=== PATIENT | male | born 1965 | race American Indian/Alaskan Native ===

== ENCOUNTER 2019-09-08 07:43 | Outpatient (CLI) | payer OTHER, SELFPAY ==
--- NOTE | 2019-09-08 08:09 | CT_ITS ---
WS: [id number] CT CHEST TECHNIQUE: Contrast enhanced CT of the chest with coronal and sagittal reformatted images. CLINICAL INFORMATION: ABNORMAL CT COMPARISON: None. DLP: 956.[address] scans at [facility] use at least one of these dose optimization techniques: automat ed exposure control; mA and/or kV adjustment per patient size (includes targeted exams where dose is matched to clinical indication); or iterative reconstruction. FINDINGS: Noncalcified 6 mm nodule in the right upper lobe. Slight atelectasis in the lung bases. Tiny hazy non calcified nodule in the left lower lobe measuring 4 mm. Mild chronic emphysematous changes. Proximal main pulmonary arteries are normal. No mediastinal or hilar lymphadenopathy. Mild diffuse fatty infiltration of the liver. Adrenal glands are normal. Bilateral renal cysts. Parti ally visualized left renal cyst measuring 4.[address]/CT chest w con* [id number] IMPRESSION: 1. Noncalcified right upper lobe nodule measuring 6 mm. Noncalcified 3 mm nodu le in the left lower lobe. Recommend 6 month follow-up. 2. Mild chronic emphysematous changes. No acute pulmonary infiltrates. Slight atelectasis in the lung bases. 3. No mediastinal or hilar lymphadenopathy. 4. Mild diffuse fatty infiltration of the liver. 5. Partially visualized bilateral renal cysts.
[2019-09-08] MEDS: iohexol 300 mg/mL 100 mL Btl IV (08:31)
== END 2019-09-08 07:44 | disposition home or self-care (01) ==
LOC: RADWPI 07:50
PROVIDERS: PCP Internal Medicine; Visit Provider Internal Medicine
DX: R93.89 Abnormal findings on diagnostic imaging of other specified body structures (principal); R91.1 Solitary pulmonary nodule; J43.8 Other emphysema; K76.0 Fatty (change of) liver, not elsewhere classified; N28.1 Cyst of kidney, acquired
CPT/HCPCS: 71260; Q9967

== ENCOUNTER 2022-05-22 12:15 | Emergency (ER) | payer OTHER, SELFPAY ==
[2022-05-22 12:20] VITALS: BP 191/98; PULSE 106; RESP 20; TEMP 37.6; O2SAT 95
--- NOTE | 2022-05-22 12:33 | ECG_ITS ---
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 Measurements Intervals [place] Rate: 90 P: 44 MO: 131 QRS: 109 QRSD: 108 T: 17 QT: 360 QTc: 441 Interpretive Statements SINUS RHYTHM RIGHT AXIS DEVIATION [QRS AXIS > 100] PATTERN CONSISTENT WITH PULMONARY DISEASE NONSPECIFIC T-WAVE ABNORMALITY No previous ECG available for comparison Electronically Signed On 05-22-2022 21:27:34 CDT by Sharyn Vale M.D. [id number]
--- NOTE | 2022-05-22 12:33 | XR_ITS ---
WS: [id number] XR chest 1V portable [id number] REASON FOR EXAM: dyspnea/cough FINDINGS: No recent examination for comparison. Mild tortuosity the thoracic aorta. Normal heart size. Calcified granulomatous disease in both hemithoraces. Slightly thickened reticular interstitial lung opacities in the left lower lung with subtle patchy ar ea of opacity overlying the diaphragm. Significant changes of degenerative spondylosis in the mid and lower thoracic spine. XR/XR chest 1V portable [id number] IMPRESSION: Subtle opacities in the left lower lung of unknown chronicity. Possibly early m anifestation of pneumonitis. Follow-up PA and lateral chest recommended as clin ically warranted.
--- NOTE | 2022-05-22 12:39 | W.ED.SOB ---
HPI - SOB/Dyspnea General: Chief Complaint: Shortness of Breath/Dyspnea Stated Complaint: SOB Time Seen by Provider: 05/22/22 12:24 Source: patient Mode of arrival: ambulatory History of Present Illness: HPI Narrative: 57-year-old male with history of COPD presents emergency room complaining of shortness of breath productive cough progressively worsening for last several days he has had increase of sputum production from his baseline as well patient. Patient is a former smoker has a history of COPD quit smoking years ago but still has difficulty with COPD is not normally on oxygen he has a low-grade fever. He denies chest discomfort or radiation of pain to the neck arms at this time. MD elicited complaint: shortness of breath and cough Pertinent past history: COPD Onset (ago): day(s) Context: occurred during exertion Timing: constant and progressively worsening Severity: mild Exacerbating factors: exertion and coughing Relieving factors: rest Known history of: COPD Associated symptoms: Reports fever(s); Deny abdominal pain, chest congestion, chest pain, cough, diaphoresis, dizziness, extremity pain, hemoptysis, lightheadedness, myalgias, nausea, orthopnea, palpitations, paresthesias, polydipsia, polyuria, rash, sense of impending doom, syncope or vomiting Treatment prior to arrival: none Review of Systems Const: Reports: fever(s); Denies: chills, fatigue, malaise or diaphoresis ENMT: Denies: throat pain, ear or mastoid pain, nasal discharge or nasal congestion Card: Denies: chest pain, palpitations, irregular heart rhythm, edema, lightheadedness, syncope or orthopnea Resp: Reports: dyspnea, non-productive cough and wheezing; Denies: hemoptysis or chest congestion GI: Denies: abdominal pain, nausea or vomiting : Denies: flank pain, dysuria, urinary frequency or urinary urgency Musc: Denies: extremity pain Skin/Breast: Denies: rash or pruritus Neuro: Denies: dizziness Endo: Denies: polyuria or polydipsia Physical Exam Const: GENERAL APPEARANCE: cooperative and comfortable ORIENTATION/CONSCIOUSNESS: Yes awake, Yes oriented to person, Yes oriented to place and Yes oriented to time HENMT: COMMON NORMALS: normocephalic, atraumatic and hearing grossly normal bilaterally HEAD & SCALP: normocephalic and atraumatic Resp: COMMON NORMALS: normal respiratory effort, No retractions and No use of accessory muscles AUSCULTATION: wheezes Cardio: COMMON NORMALS: regular rate, regular rhythm and No murmurs present (Cardio) RATE: regular rate RHYTHM: regular rhythm GI: COMMON NORMALS: Soft to palpation and No hepatosplenomegaly present AUSCULTATION: Yes normoactive bowel sounds PALPATION: Yes Soft to palpation, No Tenderness to palpation present (GI), No Guarding due to palpation present (GI) and Yes No hepatosplenomegaly present Extremity: COMMON NORMALS: normal to inspection, capillary refill normal, no clubbing, cyanosis or edema, no calf tenderness and no pedal edema Neuro: SENSORIUM/ORIENTATION: Yes oriented to person, Yes oriented to place and Yes oriented to time Skin: COMMON NORMALS: no rashes or lesions noted GENERAL SKIN EXAM: no rashes or lesions noted Course Vital Signs: Vital signs: Vital Signs Temperature 98.2 F 05/22/22 14:15 Pulse Rate 90 05/22/22 14:15 Respiratory Rate 18 05/22/22 14:15 Blood Pressure 179/98 05/22/22 14:15 Pulse Oximetry 92 05/22/22 14:15 Oxygen Delivery Me thod 05/22/22 13:17 MDM - SOB/Dyspnea Medical Decision Making Labs imaging and EKG reviewed. No acute EKG changes early pneumonia on the chest x-ray. I think he also has a mild exacerbation of COPD. His COVID is negative. No evidence of pulmonary emboli and his clinical presentation not consistent with acute coronary syndrome. Will discharge home on Levaquin 750 p.o. daily prednisone taper aggressive use of albuterol follow-up with primary care doctor return if is worsening symptoms Medical Records I reviewed the patient's medical records. Lab Data I reviewed the patient's lab results. 05/22/22 12:50 05/22/22 12:50 Labs/Radiology: Radiology Impressions Chest X-Ray 05/22/22 12:33 IMPRESSION: Subtle opacities in the left lower lung of unknown chronicity. Possibly early manifestation of pneumonitis. Follow-up PA and lateral chest recommended as clinically warranted. Laboratory Results WBC 5.4 10^3/uL (4.0-10.0) 05/22/22 12:50 RBC 5.06 10^6/uL (4.1-5.3) 05/22/22 12:50 Hgb 15.4 g/dL (11.7-16.6) 05/22/22 12:50 Hct 45.4 % (42.0-52.0) 05/22/22 12:50 MCV 89.7 fl (80-94) 05/22/22 12:50 MCH 30.4 pg (28.0-34.0) 05/22/22 12:50 MCHC 33.9 g/dL (30.0-36.0) 05/22/22 12:50 RDW 12.1 % (12.1-15.1) 05/22/22 12:50 Plt Count 198 10^3/cmm (130-400) 05/22/22 12:50 MPV 11.4 fL (7.4-10.4) H 05/22/22 12:50 Neut % (Auto) 64.7 % 05/22/22 12:50 Lymph % (Auto) 21.7 % 05/22/22 12:50 [place] % (Auto) 9.0 % 05/22/22 12:50 Eos % (Auto) 3.6 % 05/22/22 12:50 Baso % (Auto) 0.6 % 05/22/22 12:50 Neut # (Auto) 3.47 10^3/uL (1.8-7.7) 05/22/22 12:50 Lymph # (Auto) 1.2 10^3/uL (0.8-4.8) 05/22/22 12:50 [place] # (Auto) 0.5 10^3/uL (0.2-0.9) 05/22/22 12:50 Eos # (Auto) 0.2 10^3/uL (0.0-0.8) 05/22/22 12:50 Baso # (Auto) 0.0 10^3/uL (0.0-0.1) 05/22/22 12:50 Nucleated RBC % (auto) 0 % 05/22/22 12:50 Nucleated RBCs # 0.0 /100WBC 05/22/22 12:50 Sodium 135 mmol/L (136-145) L 05/22/22 12:50 Potassium 3.8 mmol/L (3.5-5.1) 05/22/22 12:50 Chloride 98 mmol/L (98-107) 05/22/22 12:50 Carbon Dioxide 22 mmol/L (22-29) 05/22/22 12:50 Anion Gap 18.8 (5-19) 05/22/22 12:50 BUN 14 mg/dL (6-20) 05/22/22 12:50 Creatinine 0.8 mg/dL (0.7-1.2) 05/22/22 12:50 GFR Calculation 100.4 mL/min (90-130) 05/22/22 12:50 Glucose 82 mg/dL (65-115) 05/22/22 12:50 Calculated Osmolality 280 mOsm/kg (285-295) L 05/22/22 12:50 Calcium 8.6 mg/dL (8.5-10.5) 05/22/22 12:50 Total Bilirubin 0.7 mg/dL (0.15-1.2) 05/22/22 12:50 AST 37 U/L (0-40) 05/22/22 12:50 ALT 33 U/L (0-41) 05/22/22 12:50 Alkaline Phosphatase 73 U/L (40-130) 05/22/22 12:50 Troponin T Baseline 10 ng/L (0-15) 05/22/22 12:50 Total Protein 7.6 g/dL (6.6-8.7) 05/22/22 12:50 Albumin 4.0 g/dL (3.5-5.2) 05/22/22 12:50 Globulin 3.6 g/dL (1.3-4.6) 05/22/22 12:50 Coronavirus 229E (PCR) Not detected (NOT DETECT) 05/22/22 13:15 Human Metapneumovir PCR Detected (NOT DETECT) A 05/22/22 15:43 Entero/Rhino (PCR) Not detected (NOT DETECT) 05/22/22 15:43 SARS-CoV-2 (PCR) Not detected (NOT DETECT) 05/22/22 13:15 Discharge Plan Discharge Patient Disposition: Home Clinical Impression: Community acquired pneumonia, Acute exacerbation of chronic obstructive airways disease Condition: Stable Prescriptions: New levofloxacin 750 mg tablet 750 mg PO DAILY 7 Days Qty: 7 0RF Medrol (Bronson) 4 mg tablets,dose pack See Rx Instructions .ROUTE .COMPLEX Qty: 21 0RF Rx Instructions: orally per package directions albuterol sulfate 90 mcg/actuation HFA aerosol inhaler 2 inh INHALATION Q4H PRN (Reason: shortness of breath or wheezing) Qty: 18 0RF Discharge Orders: Discharge ED (Routine); Ordered 05/22/22 Ordered By: Simone Levin Referrals: Thu Penn MD [Primary Care Provider] - Discharge Diet: Usual diet Discharge Activity: Increase activity as tolerated Patient Instructions: Opioid Safety, Pain Management Activity Restrictions/Additional Instructions: You are seen today for increasing productive cough. Chest x-ray shows early pneumonia. Recommend you start on oral antibiotics as well as steroid taper and use albuterol regularly. Return to the ER if you have significant worsening problems. Coding Level of Care Code ED [employer] for Nemo Novak
[2022-05-22 12:48] VITALS: BP 143/97; PULSE 95; RESP 20; O2SAT 95
[2022-05-22] MEDS: aspirin 81 mg Chew Tablet 324 MG PO (12:50)
[2022-05-22 13:06] LABS: Basophils % 0.6 %; Eosinophils # 0.2 10^3/uL (0.0-0.8); Eosinophils % 3.6 %; Hematocrit 45.4 % (42.0-52.0); Hemoglobin 15.4 g/dL (11.7-16.6); Lymphocytes # 1.2 10^3/uL (0.8-4.8); Lymphocytes % 21.7 %; Mean Corpuscular HGB Conc 33.9 g/dL (30.0-36.0); Mean Corpuscular Hemoglobin 30.4 pg (28.0-34.0); Mean Corpuscular Volume 89.7 fl (80-94); Mean Platelet Volume 11.4 fL (7.4-10.4); Monocytes # 0.5 10^3/uL (0.2-0.9); Neutrophils # 3.47 10^3/uL (1.8-7.7); Neutrophils % 64.7 %; Nucleated Red Blood Cells % 0 %; Platelet Count 198 10^3/cmm (130-400); Red Blood Count 5.06 10^6/uL (4.1-5.3); Red Cell Distribution Width 12.1 % (12.1-15.1); White Blood Count 5.4 10^3/uL (4.0-10.0)
[2022-05-22 13:17] VITALS: PULSE 96; RESP 16; O2SAT 95
[2022-05-22] MEDS: ipratropium-albuterol 3 mL Neb INHALATION (13:17)
[2022-05-22 13:21] VITALS: PULSE 99
[2022-05-22 13:21] LABS: Alanine Aminotransferase 33 U/L (0-41); Alkaline Phosphatase 73 U/L (40-130); Anion Gap 18.8 (5-19); Aspartate Amino Transferase 37 U/L (0-40); Blood Urea Nitrogen 14 mg/dL (6-20); Calcium 8.6 mg/dL (8.5-10.5); Carbon Dioxide 22 mmol/L (22-29); Chloride 98 mmol/L (98-107); Globulin 3.6 g/dL (1.3-4.6); Glomerular Filtration Rate 100.4 mL/min (90-130); Glucose 82 mg/dL (65-115); Osmolality Calculated 280 mOsm/kg (285-295); Potassium 3.8 mmol/L (3.5-5.1); Sodium 135 mmol/L (136-145); Total Bilirubin 0.7 mg/dL (0.15-1.2); Total Protein 7.6 g/dL (6.6-8.7)
[2022-05-22 13:23] LABS: Troponin(5th) Baseline 10 ng/L (0-15)
[2022-05-22 14:15] VITALS: BP 179/98; PULSE 90; RESP 18; TEMP 36.8; O2SAT 92
[2022-05-22 15:31] LABS: Adenovirus Not Detected (NOT DETECT); Chlamydia Pneumoniae Not Detected (NOT DETECT); Coronavirus 229E,HKU1,NL63,OC4 Not Detected (NOT DETECT); Human Metapneumovirus Detected (NOT DETECT); Human Rhinovirus/Enterovirus Not Detected (NOT DETECT); Influenza A Not Detected (NOT DETECT); Influenza A H1 Not Detected (NOT DETECT); Influenza A H1-2009 Not Detected (NOT DETECT); Influenza A H3 Not Detected (NOT DETECT); Influenza B Not Detected (NOT DETECT); Mycoplasma Pneumoniae Not Detected (NOT DETECT); Parainfluenza Virus Type 1 Not Detected (NOT DETECT); Parainfluenza Virus Type 2 Not Detected (NOT DETECT); Parainfluenza Virus Type 3 Not Detected (NOT DETECT); Parainfluenza Virus Type 4 Not Detected (NOT DETECT); Respiratory Syncytial Virus A Not Detected (NOT DETECT); Respiratory Syncytial Virus B Not Detected (NOT DETECT); SARS-COV-2 Not Detected (NOT DETECT)
[2022-05-22 15:48] LABS: Human Metapneumovirus Detected (NOT DETECT); Human Rhinovirus/Enterovirus Not Detected (NOT DETECT); Results from Genmark
== END 2022-05-22 14:16 | disposition home or self-care (01) ==
PROVIDERS: Emergency Provider Family Medicine; PCP Family Medicine
DX: J44.0 Chronic obstructive pulmonary disease with (acute) lower respiratory infection (principal); J18.9 Pneumonia, unspecified organism; J44.1 Chronic obstructive pulmonary disease with (acute) exacerbation; Z20.822 Contact with and (suspected) exposure to COVID-19
CPT/HCPCS: 36415; 71045; 80053; 84484; 85025; 87635; 87801; 93005; 94640; 96374; 99285; J2930

== ENCOUNTER 2022-06-01 06:23 | Outpatient (CLI) | payer OTHER, SELFPAY ==
--- NOTE | 2022-06-01 06:31 | CT_ITS ---
WS: [id number] CT chest w con* [id number] HISTORY: LUNG NODULE TECHNIQUE: Axial imaging performed through the thorax. Coronal and sagittal reformats are submitted. All CT scans at [facility] use at least one of these dose optimization techniques: automated exposure control; mA and/or kV adjustment per patient size (includes targeted exams where dose is mat ched to clinical indication); or iterative reconstruction. CONTRAST: Omnipaque 350; 100 mL IV. DLP: 422.82 mGy.cm COMPARISON: 09/08/2019 Lungs and central airway: Mild hyperinflation. No interval change of any significance to the noncalci fied RIGHT upper lobe 6 mm and LEFT lower lobe 5 mm nodules. No new pulmonary nodule, mass or pneumon ia. Bandlike areas of atelectasis at the lingula and LEFT lung base. Pleura: Normal. No pleural effusion. Heart and pericardium: Normal size heart with no pericardial effusion. Mediastinum and yovana: No mediastinum or hilar adenopathy. Stable size and number since 09/08/2019. Vessels: Mild atherosclerosis aorta. No aneurysm. Normal size pulmonary artery. Chest wall and lower neck: No soft tissue masses. Upper abdomen: Hepatic steatosis. Incompletely visualized kidneys. Partially visualized cyst upper po le RIGHT kidney measures 3.0 cm. There is a lobulated cyst measuring 4.2 x 6.0 cm in the posterior up per pole LEFT kidney. Visualized pancreas is negative. Osseous structures: No destructive process. CT/CT chest w con* [id number] IMPRESSION: 1. Long-term stability RIGHT upper and LEFT lower lobe subcentimeter pulmonary nodules. No additional follow-up necessary. No new nodule or mass. 2. No adenopathy. 3. Bilateral incompletely visualized cyst upper poles of each kidney. 4. Mild atherosclerosis aorta.
[2022-06-01] MEDS: iohexol 350 mg/mL 500 mL Btl (per mL) IV (06:42)
== END 2022-06-01 06:24 | disposition home or self-care (01) ==
LOC: RAD 06:24
PROVIDERS: PCP Family Medicine; Visit Provider Family Medicine
DX: R91.8 Other nonspecific abnormal finding of lung field (principal); N28.1 Cyst of kidney, acquired
CPT/HCPCS: 71260; Q9967

== ENCOUNTER 2022-06-10 06:51 | Outpatient (CLI) | payer OTHER, SELFPAY ==
--- NOTE | 2022-06-10 | US_ITS ---
WS: [id number] ULTRASOUND RENAL TECHNIQUE: Ultrasound examination of both kidneys. CLINICAL INFORMATION: BILATERAL RENAL CYSTS ON CT COMPARISON: CT chest 06/07 FINDINGS: Bilateral renal cysts described below. RIGHT:RIGHT renal cyst superior pole simple appearance measuring 4.6 x 2.6 x 2.9 cm Right kidney is normal in size and appearance. Echogenicity: Normal. Cortical thickness: 1.6 cm; Normal. Hydronephrosis: None. Perinephric fluid: None. Right kidney measures: 11.9 cm x 5.0 cm x 6.4 cm. LEFT:Slightly complex cyst superior pole LEFT kidney with one or 2 septations measuring 5.6 x 5.9 x 4 .8 cm Left kidney is normal in size and appearance. Echogenicity: Normal. Cortical thickness: 1.5 cm; Normal. Hydronephrosis: None. Perinephric fluid: None. Left kidney measures: 12.9 cm x 5.8 cm x 5.7 cm. Normal visualized aorta. Normal bladder. US/US renal BI* [id number] IMPRESSION: 1. Bilateral renal cysts. No solid renal masses. 2. Slightly complex cyst superior pole LEFT kidney with one or 2 septations me asuring 5.6 x 5.9 x 4.8 cm 3. RIGHT renal cyst superior pole simple appearance measuring 4.6 x 2.6 x 2.9 cm
== END 2022-06-10 06:52 | disposition home or self-care (01) ==
LOC: RAD 06:52
PROVIDERS: PCP Family Medicine; Visit Provider Family Medicine
DX: N28.1 Cyst of kidney, acquired (principal)
CPT/HCPCS: 76770

== ENCOUNTER 2022-06-16 06:22 | Outpatient (CLI) | payer OTHER, SELFPAY ==
--- NOTE | 2022-06-16 | ECG_ITS ---
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 Interpretive Statements NAME OF STUDY: LEXISCAN SESTAMIBI STRESS TEST INDICATION: [Dyspnea, ] Procedure: At the baseline, the blood pressure was 145/87 mmHg with a heart rate of 71 bpm. The electrocardiogram showed normal sinus rhythm, normal axis with normal ST and T's. The Lexiscan was infused over a period of 20 seconds. A total of 0.4 mg of Lexiscan was infused. The stress phase was continued for a total of 5 minutes. Heart rate was at the end of stress phase was 87 bpm and a blood pressure of 161/91 mmHg. The EKG at the peak infusion revealed normal sinus rhythm with no significant ST-T wave changes. Sestamibi was injected 20 seconds after the Lexiscan infusion. Blood pressure at the end of recovery phase was 137/86 mmHg with a heart rate of 87 bpm. Conclusion: 1. Normal EKG response to Lexiscan infusion 2. No Lexiscan induced chest pain or cardiac arrhythmia. 3. Normal blood pressure and heart rate response. 4. Sestamibi/sestamibi perfusion scan pending; see separate report. Electronically Signed On 07-04-2022 20:56:18 CDT by Richard Rothman M.D. [id number]
[2022-06-16 06:57] VITALS: BMI 31.0
--- NOTE | 2022-06-16 07:52 | NMCV_ITS ---
NM ashu perf SPECT r/s* [id number] Neo Edmondson Age: 57 Gender: M : 1965 Exam Date: 06/16/2022 07:58 Ordering Phys: Thu Penn MD Technologist: JANIAY Hanson Exam Location: [facility] Indications: DYSPNEA STRESS TEST Please see separate stress test report in [facility] for full findings IMAGE PROTOCOL Rest/Stress 1 Lexiscan Day Radiopharmaceutical Dose (mCi) Administration Site Administered by Rest: Tc-99m 10.7 IV JANIYA Murrieta Sestamibi Stress:Tc-99m 32.9 IV JANIYA Murrieta Sestamibi Rest: 16-Jun-2022 60 Discovery 630 Stress: 16-Jun-2022 30 Discovery 630 0.4mg Lexiscan. Images obtained in supine and prone position. SPECT RESULTS Technical Quality: Excellent Raw Data Analysis: Normal Image Corrections: No attenuation or motion correction applied Summed Stress Score: 0 Summed Rest Score: 0 Summed Difference Score: 0 PERFUSION FINDINGS There is small area of fixed reduced radiotracer uptake in the inferior wall. Likely represents attenuation artifact. No evidence of ischemia FUNCTIONAL RESULTS (calculated via Gated SPECT) Stress Image LV EF (%): 66 Stress EDV (mL):119 TID: 1.01 Stress ESV (mL):40 FUNCTIONAL FINDINGS: There is normal left ventricular systolic function. IMPRESSIONS 1. Attenuation artifact noted in the inferior wall. No evidence of ischemia. 2. LV systolic function is normal Richard Rothman MD (Electronically Signed) Final Date: 16 Jun 2022 12:19 S
[2022-06-16] MEDS: regadenoson 0.4 Mg/5 ml Syringe IVP (08:31)
[2022-06-16 08:46] VITALS: BP 137/86; PULSE 83
== END 2022-06-16 06:23 | disposition home or self-care (01) ==
PROVIDERS: PCP Family Medicine; Visit Provider Family Medicine
DX: R06.00 Dyspnea, unspecified (principal)
CPT/HCPCS: 36415; 78452; 93017; 96374; A9500; J2785

== ENCOUNTER 2022-07-15 08:01 | Outpatient (CLI) | payer OTHER, SELFPAY ==
--- NOTE | 2022-07-15 08:14 | CTR_ITS ---
PROCEDURE INFORMATION: Exam: CT Abdomen And Pelvis Without And With Contrast Exam date and time: 07/15/2022 8:38 AM Age: 57 years old Clinical indication: Abnormal findings; Abnormal radiologic finding of the abdomen; Radiologic exam and body structure: Ultrasound, renal; Prior surgery; Surgery date: 6+ months; Surgery type: Hernia; Additional info: Abnormal us/determine bosniak classification TECHNIQUE: Imaging protocol: Computed tomography of the abdomen and pelvis without and with contrast. Radiation optimization: All CT scans at this facility use at least one of these dose optimization techniques: automated exposure control; mA and/or kV adjustment per patient size (includes targeted exams where dose is matched to clinical indication); or iterative reconstruction. Contrast material: OMNI 350; Contrast volume: 95 ml; Contrast route: INTRAVENOUS (IV); REPORTING DATA: Count of CT and Cardiac NM exams in prior 12 months: This patient has received 2 known CTs and 0 known cardiac nuclear medicine studies in the 12 months prior to the current study. COMPARISON: US renal BI* [id number] 06/10/2022 7:[address] chest w con* [id number] 06/01/2022 6:[address] chest w con* [id number] 09/08/2019 8:29 AM RADIATION DOSE METRICS: Total DLP (mGy-cm): 1312.33 FINDINGS: Lungs: Bibasilar mild pulmonary subsegmental atelectasis is present. Liver: Mild diffuse hypoattenuation of the liver is present consistent with hepatic steatosis. A minor arterial phase perfusion defect of the hepatic left lobe medial segment is noted adjacent to the falciform ligament fissure, a normal variant. 5.1 mm hepatic segment 5 anterior subcapsular hypodensity. Gallbladder and bile ducts: Normal. No calcified stones. No ductal dilation. Pancreas: Normal. No ductal dilation. Spleen: The spleen is borderline enlarged measuring 13.3 cm longitudinally. Adrenal glands: Normal. No mass. Kidneys and ureters: Bilateral renal benign cysts (Bosniak 1), largest on the left measuring 7.8 x 6.0 x 5.7 cm. Right renal 15 mm lobulated lesion with thin peripheral partial septations, no mural nodule (Bosniak 2). Stomach and bowel: Unremarkable. No obstruction. No mucosal thickening. Appendix: The vermiform appendix is normal. Intraperitoneal space: No pneumoperitoneum. Vasculature: Mild aortic atherosclerotic calcification without aneurysm. The iliac arteries show mild bilateral atherosclerotic calcifications without evidence of aneurysm. Calcified phleboliths are present in the lower pelvis bilaterally. Lymph nodes: No enlarged lymph nodes. Urinary bladder: Unremarkable as visualized. Reproductive: The prostate gland demonstrates central parenchymal calcification. Bones/joints: L5-S1 spondylosis with bilateral neural foraminal stenosis. Anterior bridging left sacroiliac joint marginal osteophytes. Lower thoracic spine, small lumbar vertebral body marginal osteophytes. Mild L4-L5 spondylosis. Soft tissues: A 3.4 cm paraumbilical hernia containing only abdominal fat and a tiny amount of peritoneal fluid is noted. CT/CT abdomen pelvis wo/w [id number] IMPRESSION: 1. Bilateral renal benign cysts (Bosniak 1). No follow-up imaging is recommended. 2. Right renal benign cyst (Bosniak 2). No follow-up imaging is recommended. 3. Fatty infiltration of the liver. 4. Small nonspecific hepatic hypodensity, stable. Two year 10 month stability suggest benignity. 5. Paraumbilical hernia. 6. Borderline splenomegaly. 7. Chronic calcific prostatitis. COMMENTS: Consistent with the [employer]'s Incidental Findings Committee white paper (J Am Kristina Radiol 2018): Any incidental renal lesion less than 1 cm or classified as too small to characterize, or any incidental cystic renal lesion characterized as simple-appearing, is likely benign. No follow-up imaging is recommended for these lesions per consensus recommendations based on imaging criteria.
[2022-07-15] MEDS: iohexol 350 mg/mL 500 mL Btl (per mL) IV (08:43)
== END 2022-07-15 08:02 | disposition home or self-care (01) ==
PROVIDERS: PCP Family Medicine; Visit Provider Family Medicine
DX: N28.1 Cyst of kidney, acquired (principal); K76.0 Fatty (change of) liver, not elsewhere classified; K42.9 Umbilical hernia without obstruction or gangrene; R16.1 Splenomegaly, not elsewhere classified; N41.1 Chronic prostatitis
CPT/HCPCS: 74178; Q9967

== ENCOUNTER → 2023-05-06 15:18 | Outpatient (BNVA) | payer OTHER, SELFPAY | PROVIDERS: PCP Family Medicine; Referring Provider Family Medicine; Visit Provider Student in an Organized Health Care Education/Training Program | DX: M79.641 Pain in right hand; M79.642 Pain in left hand; G56.03 Carpal tunnel syndrome, bilateral upper limbs; G56.21 Lesion of ulnar nerve, right upper limb | CPT/HCPCS: 73130; 99204 ==

== ENCOUNTER → 2023-05-21 11:02 | Outpatient (BNVA) | payer OTHER, SELFPAY | PROVIDERS: PCP Family Medicine; Visit Provider Podiatrist Foot & Ankle Surgery | DX: L60.3 Nail dystrophy (principal) | CPT/HCPCS: 99203 ==

== ENCOUNTER 2023-06-16 05:51 | Day surgery (SDC) | payer OTHER, SELFPAY ==
[2023-06-16] VITALS (9 sets, daily range): BP systolic 115–157; BP diastolic 78–95; PULSE 68–84; RESP 16–17; TEMP 36.5–36.7; O2SAT 91–99; BMI 32.5
--- NOTE | 2023-06-16 06:10 | ANES.PREANE2 ---
Pre-Anesthetic Assessment Height/Weight: Height 1.75 m Operation Date: 06/16/23 07:00 Proposed Procedures p Carpal Tunnel Release(Right) - Ibrahima Leslie, DO s Cubital Tunnel Release(Right) - Ibrahima Leslie, DO Was Beta Litzy taken within 24 hours: N/A Social Alcohol and No tobacco (former) Exam alert, oriented x 3, clear to auscultation bilaterally and regular rate & rhythm Airway Submandibular: within normal limits Cervical ROM: Other (limited) Mallampati: Class II Pulmonary Chronic Obstructive Pulmonary Disease CV/HEM Hypertension GI Gastroesophageal Reflux Disease (well controlled ) Metabolic Hyperlipidemia and Morbid Obesity Anesthetic Plan ASA status: 3 Anesthesia: General Medications/Allergies Home Medications Medication Instructions Recorded Confirmed Last Taken Type albuterol sulfate 90 mcg/actuation 2 inh inhalation Q4H PRN shortness 05/22/22 06/15/23 Unknown Rx aerosol inhaler of breath or wheezing #18 grams amlodipine 10 mg tablet 10 mg PO DAILY 05/06/23 06/15/23 06/15/23 History atorvastatin 80 mg tablet 80 mg PO DAILY 05/06/23 06/15/23 06/14/23 History budesonide 160 mcg-glycopyr 9 2 inh inhalation BID 05/06/23 06/15/23 06/15/23 History mcg-formot 4.8 mcg/actuation HFA inhaler (Breztri Aerosphere) cholecalciferol (vitamin D3) 25 25 mcg PO .3 tabs daily 05/06/23 06/15/23 06/15/23 History mcg (1,000 unit) capsule docosahexaenoic acid 200 mg 200 mg PO .3 once daily 05/06/23 06/15/23 Unknown History capsule (Algal Stephens-3 DHA) omeprazole 20 mg capsule,delayed 20 mg PO DAILY 05/06/23 06/15/23 06/15/23 History release tamsulosin 0.4 mg capsule 0.4 mg PO DAILY 05/06/23 06/15/23 06/14/23 History Allergies Allergy/AdvReac Type Severity Reaction Status Date / Time No Known Allergies Allergy Verified 05/21/23 11:04 [facility] Anesthesia Social History Smoking and tobacco/nicotine status: former use of tobacco/nicotine Alcohol intake: current Alcohol intake frequency: few times a month Data Anesthesia Cardiac Studies: Sestamibi Stress Test (Cardiology) 06/16/22
[2023-06-16] MEDS: acetaminophen 1,000 MG/100 ML PIGGYBACK 400 MG IV (06:16)
[2023-06-16] MEDS: sodium chloride 0.9% 1,000 ML 30 ML IV (06:18)
[2023-06-16] MEDS: ketorolac 30 mg/mL INJ IVP (06:19)
[2023-06-16] MEDS: scopolamine 1.5 Patch 1 PATCH TRANSDERMA (06:24)
--- NOTE | 2023-06-16 06:58 | P.HP_ITS ---
Same Day Surgery H&P Indication for Procedure/HPI DATE OF PROCEDURE: June 16, 2023 CHIEF COMPLAINT/INDICATIONFOR SURGICAL PROCEDURE: Right carpal tunnel syndrome, right cubital tunnel syndrome PREOP DIAGNOSIS: Right carpal tunnel syndrome, right cubital tunnel syndrome PLANNED PROCEDURE: Operation Date: 06/16/23 07:00 Proposed Procedures p Carpal Tunnel Release(Right) - Ibrahima Rivera DO s Cubital Tunnel Release(Right) - Ibrahima Rivera DO Medications/Allergies* Home Medications Medication Instructions Recorded Confirmed Type amlodipine 10 mg tablet 10 mg PO DAILY 05/06/23 06/15/23 History atorvastatin 80 mg tablet 80 mg PO DAILY 05/06/23 06/15/23 History budesonide 160 mcg-glycopyr 9 2 inh inhalation BID 05/06/23 06/15/23 History mcg-formot 4.8 mcg/actuation HFA inhaler (Breztri Aerosphere) cholecalciferol (vitamin D3) 25 25 mcg PO .3 tabs daily 05/06/23 06/15/23 History mcg (1,000 unit) capsule docosahexaenoic acid 200 mg 200 mg PO .3 once daily 05/06/23 06/15/23 History capsule (Algal Hooppole-3 DHA) omeprazole 20 mg capsule,delayed 20 mg PO DAILY 05/06/23 06/15/23 History release tamsulosin 0.4 mg capsule 0.4 mg PO DAILY 05/06/23 06/15/23 History Allergies/Adverse Reactions Allergy/AdvReac Type Severity Reaction Status Date / Time No Known Allergies Allergy Verified 05/21/23 11:04 Current Medications: Generic Name Dose Route Start Last Admin Trade Name Freq PRN Reason Stop Dose Admin Sodium Chloride 1,000 mls @ 30 mls/hr 06/16/23 06:15 06/16/23 06:18 Sodium Chloride 0.9% IV 06/17/23 06:14 30 mls/hr .Q24H CAIN Administration Pertinent History/Comorbid Conditions* Social History Smoking and tobacco/nicotine status: former use of tobacco/nicotine Alcohol intake: current Alcohol intake frequency: few times a month Pertinent Exam Findings alert, oriented x 3, operative site marked and procedure specific exam findings Patient has positive Tinel's over the carpal tunnel and cubital tunnel over the right side, please refer to previous orthopedic office examination on 05/06/2023: right upper extremity C-spine ROM No pain. Right Negative Spurlings negative Tinel's@ shoulder. Normal ROM Normal ROM elbow. Positive Tinel's@ elbow Right Positive median compression test right Positive Tinel's on right Positive elbow flexion test right lateral epicondyle pain with resisted wrist extension Thenar atrophy noted Positive nerve medial nerve compression at wrist No intrinsic atrophy noted Left upper extremity Normal C-spine ROM No pain. Left Negative Spurlings Negative Tinel's@ shoulder. Normal ROM Normal ROM elbow. Negative Tinel's@ elbow Left. Wrist: Negative median compression test. Positive Tinel's on left Thenar weakness noted no significant atrophy no intrinsic atrophy noted Recommendations Surgery/Procedure today Other Plans: Plan to proceed to the OR today with right carpal tunnel release and right cubital tunnel release with possible ulnar nerve transposition . Patient understands and agrees with current plan. All questions answered. Elects proceed with surgery today. Understands the risk benefits complication alternatives of surgery elects proceed all questions answered. Coding Level of Care Code Acute Code for [facility] Fwd
[2023-06-16] MEDS: ceFAZolin 2,000 MG in sodium chloride 0.9% (plus) 50 ML 100 MG IV (07:01)
[2023-06-16] MEDS: ROPivacaine 0.5% SDV 30 mL 150 MG INJECTION (07:55)
[2023-06-16] MEDS: lidocaine-epi 1% 20 mL INJ 10 ML INJECTION (07:55)
--- NOTE | 2023-06-16 08:14 | W.PM.BPON ---
Date of Procedure: 06/16/2023 Surgeon: Ibrahima Rivera DO Information Technology Internship(s): Neo Rivera PA-C Procedure(s) performed: Right carpal tunnel release Right cubital tunnel release (ulnar nerve decompression at the elbow) Findings of the procedure(s): Patient found to have right carpal tunnel syndrome right cubital tunnel syndrome underwent procedure as planned without issues or complications Estimated blood loss: 5 mL Specimen(s) removed: None Post-operative diagnosis: Right carpal tunnel syndrome, right cubital tunnel syndrome
--- NOTE | 2023-06-16 08:16 | PM.OP ---
Operative Report Date of procedure: June 16, 2023 Surgeon: Ibrahima Rivera DO Supervisor Communications And Signals: Neo Rivera PA-C: PA was necessary for assistance in this case with hand positioning to execute the procedure, retraction and protection of neurovascular structures as well as to assist with wound closure and dressing application. Procedure: Preoperative diagnosis: Right carpal tunnel syndrome, right cubital tunnel syndrome Postoperative diagnosis Same Procedure done: Right carpal tunnel release Right?cubital tunnel tunnel release (ulnar nerve decompression at elbow) Surgeon: Ibrahima Rivera DO Estimated blood loss: 5 mL Tourniquet 28 minutes IV fluids: See anesthesia record Complications: None Findings: See operative report narrative Condition: stable Disposition: same day Brief History: Patient's been seen and worked up in the outpatient setting and findings consistent with preoperative diagnosis.? Patient has right carpal tunnel syndrome as well as right?cubital tunnel syndrome which has been worked up in the outpatient setting has physical exam findings consistent with this as well as confirmatory nerve conduction/EMG nerve conduction study consistent with carpal tunnel diagnosis. Patient is significant physical exam findings consistent with the cubital tunnel syndrome. As result through shared decision making agreed to proceed with? right carpal tunnel and right?cubital tunnel release we talked about treatment options as far as nonoperative and operative intervention.? Understands risk benefits complication alternatives surgical nonsurgical treatment options.? Understanding his risks he agrees to proceed with surgical intervention. Understanding these risks he agrees to proceed with surgery.? Consent obtained. Procedure: Patient seen evaluate in the preoperative holding area.? Consent was reviewed and signed with patient.? Correct extremity marked.? Patient seen evaluated by anesthesia department once cleared for surgery was then taken back to the operative suite placed in supine position all bony prominences well-padded patient properly secured to bed.? right upper extremity placed onto armboard.? Nonsterile tourniquet applied right upper arm.? Patient then underwent anesthesia per the anesthesia department.? Patient's right upper extremity was then prepped and draped in standard orthopedic fashion.? Final timeout performed.? Patient received appropriate preoperative antibiotics. Esmarch was used exsanguinate the right upper extremity.? Tourniquet was insufflated to 250 mmHg. I started with the carpal tunnel release first.? I made a standard open carpal tunnel release starting with the distal most extent in the palm at the Wolfe's cardinal line and the incision line was made in line with the fourth ray and ended just distal to the wrist crease.? Sharp scalpel incision was made through skin and subcutaneous tissue I then utilizing self retainer then began to dissect with dissection scissors split longitudinally the palmar fascia.? Next I then utilizing my preschool teacher assistant Ashok retractors subsequently utilizing scalpel feathered through the palmaris brevis as well as through the transverse carpal ligament distally.? Once I encountered the floor of the transverse carpal ligament and entered into the carpal tunnel I then switched to dissection scissors.? Carefully released the distal extent of the transverse carpal ligament to the palmar fat.? Care was to protect the recurrent branch and not injured this during this part of the case.? Next I then placed a [place] underneath the transverse carpal ligament proximally to protect the nerve in the carpal tunnel contents.? And then I subsequently under loupe magnification utilize my dissection scissors to release the transverse carpal ligament into the antebrachial fascia under direct visualization with care to keep my scissors with a curved ulnarly away from the palmar cutaneous branch.? The transverse carpal was then completely decompressed proximally and a [place] was then placed both distally and proximally throughout the carpal tunnel and had complete decompression of the nerve.? The nerve did appear to have hourglass shape as it went through the carpal tunnel.? With significant irritation noted around the nerve.? No masses were noted within the contents of the carpal tunnel.? This completed the carpal tunnel release and then I subsequently irrigated the wound bed and placed a wet Ray-Wilfrido into the incision for later closure. Next marked out the landmarks of the right elbow of the medial epicondyle and olecranon and made a curvilinear incision following the course of the ulnar nerve at the medial aspect of the elbow.? Sharp scalpel incision was made through skin and subcutaneous tissue.? Next I switched to Littler dissection scissors and spread in plane of the medial antebrachial cutaneous nerve branching which was protected throughout this part of the dissection.? Then I directly came down over the fascia and identified the 2 heads of the FCU fascia and split this right in the middle and subsequently identified my ulnar nerve distally.? This was then completely released distally under direct visualization and loupe magnification.? Once the nerve was then identified I then subsequently tracked this proximally and released this through Lopez's ligament as well as complete decompression of the nerve proximally all the way past the intermuscular septum.? The nerve was completely released and decompressed both proximally and distally.? Ulnar nerve neurolysis performed and completed both proximally and distally with dissection scissors.? I then took the elbow through range of motion and there was no instability or subluxating of the ulnar nerve.? This completed?cubital tunnel release.? Next the wound bed was thoroughly irrigated.? Tourniquet was deflated.? Hemostasis was satisfactory at the?cubital tunnel release surgery site. I then inspected the carpal tunnel incision and this was found to have satisfactory hemostasis and all this was maintained through bipolar electrocautery.? At this point time I sequentially closed?cubital tunnel site with 3-0 Vicryl suture in a running horizontal mattress nylon stitch.? ? The carpal tunnel release surgery was then closed in standard interrupted mattress fashion.? Dressing was Xeroform 4 x 4's ABD Curlex soft roll and an Dionicio wrap has a bulky soft dressing. Patient was then awakened from anesthesia and taken to PACU in stable condition. Disposition: Patient taken to PACU in stable condition recovering well.? Patient will receive appropriate discharge instructions as well as pain medication postoperatively.? We will follow-up with me in the office in 2 weeks.? Patient understands agrees with current plan.? All questions answered.? He understands if any questions or concerns and contact the office for follow-up appointment.
--- NOTE | 2023-06-16 08:27 | PM.PACU ---
PACU note Narrative: Patient is a 58-year-old male just underwent a right carpal tunnel and right cubital tunnel release. Patient transferred to PACU in stable condition. Pain is well controlled. Dressing on hand is dry and in place. Patient's fingers are warm and well-perfused. Patient can wiggle fingers. normal cap refill under 2 seconds. Patient has normal elbow range of motion. Unable to assess sensation due to residual localized anesthetic. Exam: awake Disposition: discharged
--- NOTE | 2023-06-16 08:54 | ANE.PACU2 ---
Inpatient post-anesthesia follow up: Vital signs: Temperature 98.0 F Pulse Rate 72 Respiratory Rate 17 Blood Pressure 157/83 Pulse Oximetry 95 Oxygen Delivery Me thod Room Air Oxygen Flow Rate 6 Fraction of Inspir ed Oxygen Hydration adequate: Yes Nausea and vomiting: No Pain level: 3 Mental status: Baseline
== END 2023-06-16 09:40 | disposition home or self-care (01) ==
PROVIDERS: PCP Family Medicine; Visit Provider Student in an Organized Health Care Education/Training Program
PROC: (CPT 64721; principal; 2023-06-16 07:00)
PROC: (CPT 64718; 2023-06-16 07:00)
DX: G56.01 Carpal tunnel syndrome, right upper limb (principal); G56.21 Lesion of ulnar nerve, right upper limb; Z87.891 Personal history of nicotine dependence; J44.9 Chronic obstructive pulmonary disease, unspecified; I10 Essential (primary) hypertension; K21.9 Gastro-esophageal reflux disease without esophagitis; E78.5 Hyperlipidemia, unspecified; E66.01 Morbid (severe) obesity due to excess calories; Z68.32 Body mass index [BMI] 32.0-32.9, adult
CPT/HCPCS: 64718; 64721; J0131; J0690; J1885; J2405; J2704; J2795; J3010; J7030

== ENCOUNTER → 2023-06-18 10:55 | Outpatient (BNVA) | payer OTHER, SELFPAY | PROVIDERS: PCP Family Medicine; Visit Provider Podiatrist Foot & Ankle Surgery | DX: B35.1 Tinea unguium (principal) | CPT/HCPCS: 80053; 99213 ==

== ENCOUNTER → 2023-07-19 07:26 | Outpatient (BNVA) | payer OTHER, SELFPAY | PROVIDERS: PCP Family Medicine; Visit Provider Podiatrist Foot & Ankle Surgery | DX: B35.1 Tinea unguium (principal); L60.8 Other nail disorders | CPT/HCPCS: 36415; 80053; 99213 ==

== ENCOUNTER 2023-07-20 20:00 | Outpatient (CLI) | payer OTHER, SELFPAY | END 2023-07-20 20:01 | disposition home or self-care (01) | LOC: SLEEP 07-21 06:25 | PROVIDERS: PCP Family Medicine; Visit Provider Family Medicine | DX: G47.39 Other sleep apnea (principal) | CPT/HCPCS: 95810 ==

== ENCOUNTER → 2023-08-30 14:25 | Outpatient (BNVA) | payer OTHER, SELFPAY | PROVIDERS: PCP Family Medicine; Visit Provider Internal Medicine Cardiovascular Disease | DX: R07.9 Chest pain, unspecified (principal); R60.9 Edema, unspecified; I10 Essential (primary) hypertension; E78.5 Hyperlipidemia, unspecified; R94.31 Abnormal electrocardiogram [ECG] [EKG] | CPT/HCPCS: 93005; 99203 ==

== ENCOUNTER → 2024-05-31 15:56 | Outpatient (BNVA) | payer OTHER, SELFPAY | PROVIDERS: PCP Family Medicine; Visit Provider Podiatrist Foot & Ankle Surgery | DX: L60.3 Nail dystrophy (principal) | CPT/HCPCS: 36415; 80053; 99214 ==

== ENCOUNTER 2024-07-03 08:43 | Emergency (ER) | payer OTHER, SELFPAY ==
--- NOTE | 2024-07-03 08:51 | ECG_ITS ---
[facility] 2024[facility]03 Pat Name: Neo Edmondson Department: Room: Gender: Male General Operator: : 1965 Requested By: Simone Eugene Order Number: [id number] Gurvinder MD: Sharyn Vael M.D. Measurements Intervals [place] Rate: 69 P: 39 WY: 132 QRS: 114 QRSD: 116 T: 34 QT: 361 QTc: 389 Interpretive Statements SINUS RHYTHM POSSIBLE RIGHT VENTRICULAR HYPERTROPHY [SOME/ALL OF: PROMINENT R IN V1, LATE TRANSITION, RAD, ELVIS, SSS] Compared to ECG 08/30/2023 14:29:44 T-wave abnormality no longer present Electronically Signed On 07-04-2024 17:52:15 CDT by Sharyn Vale M.D. [id number]
[2024-07-03 08:55] VITALS: BP 135/80; PULSE 70; RESP 18; TEMP 36.8; O2SAT 98; BMI 31.7
[2024-07-03 10:00] VITALS: BP 134/72; PULSE 70; RESP 16; O2SAT 97
--- NOTE | 2024-07-03 10:14 | XRR_ITS ---
PROCEDURE INFORMATION: Exam: XR Chest Exam date and time: 07/03/2024 10:16 AM Age: 59 years old Clinical indication: Pain; Angina pectoris; Additional info: Chest pain TECHNIQUE: Imaging protocol: Radiologic exam of the chest. Views: 1 view. COMPARISON: CT chest w con* [id number] 06/01/2022 6:38 AM FINDINGS: Lungs: Unremarkable. No consolidation. Pleural spaces: Unremarkable. No pleural effusion. No pneumothorax. Heart/Mediastinum: Unremarkable. No cardiomegaly. Bones/joints: Unremarkable. XR/XR chest 1V portable [id number] IMPRESSION: No acute findings.
--- NOTE | 2024-07-03 10:14 | CT_ITS ---
WS: [id number] CT HEAD TECHNIQUE: Noncontrast CT of the head obtained from the skullbase to the vertex. CLINICAL INFORMATION: near syncope, r hand numbness COMPARISON: None. DLP: 1049.[address] scans at [facility] use at least one of these dose optimization techniques: automated exposure control; mA and/or kV adjustment per patient size (includes targeted exams where dose is matched to clinical indication); or iterative reconstruction. FINDINGS: No evidence of intracranial hemorrhage or mass effect. Ventricular system and basal cisterns are patent. Mild small vessel changes with mild parenchymal volume loss. No extra-axial fluid collections. No evidence of mass or mass effect. Paranasal sinuses and mastoid air cells are well aerated. .Normal visualized soft tissues. CT/CT head wo con* [id number] IMPRESSION: 1. No evidence of intracranial hemorrhage or mass effect. 2. No acute intracranial findings.
--- NOTE | 2024-07-03 10:15 | W.ED.GENADLT ---
HPI - General Adult General: Chief complaint: General Medical Stated complaint: abnormal ekg Time Seen by Provider: 07/03/24 10:14 History of Present Illness: 59-year-old male presents emergency room complaining of chest discomfort feeling cold and clammy felt like he was getting nearly passed out he had some numbness in his right hand but it was only from his elbow distally. By the time he arrived here all of his symptoms resolved he has no focal neurologic deficits. He had not been doing thing exertional when this began. He was seen by his primary care physician they thought his EKG looked abnormal and directed him to the emergency room. Associated symptoms: Deny chest pain, dyspnea or rash Related Data Home Medications ?Medication ?Instructions ?Recorded ?Confirmed atorvastatin 80 mg tablet 40 mg PO QPM 05/06/23 07/03/24 budesonide 160 mcg-glycopyr 9 2 inh inhalation BID 05/06/23 07/03/24 mcg-formot 4.8 mcg/actuation HFA inhaler (Breztri Aerosphere) cholecalciferol (vitamin D3) 25 75 mcg PO DAILY 05/06/23 07/03/24 mcg (1,000 unit) capsule omeprazole 20 mg capsule,delayed 20 mg PO QAM 05/06/23 07/03/24 release tamsulosin 0.4 mg capsule 0.4 mg PO QPM 05/06/23 07/03/24 furosemide 20 mg tablet 10 mg PO QAM 08/30/23 07/03/24 potassium chloride 20 mEq 10 meq PO DAILY 08/30/23 07/03/24 tablet,extended release diclofenac sodium 1 % topical gel See Rx Instructions .Route .COMPLEX 07/03/24 07/03/24 lisinopril 20 mg tablet 10 mg PO QAM 07/03/24 07/03/24 omega 3-goi-qqb-fish oil 1,000 mg 2 cap PO BID 07/03/24 07/03/24 (120 mg-180 mg) capsule (Fish Oil) sildenafil 100 mg tablet See Rx Instructions .Route .COMPLEX 07/03/24 07/03/24 Previous Rx's ?Medication ?Instructions ?Recorded terbinafine HCl 250 mg tablet 250 mg PO DAILY 45 days #45 tabs 05/31/24 aspirin 81 mg tablet,delayed 81 mg PO DAILY #30 tabs 07/03/24 release Allergies Allergy/AdvReac Type Severity Reaction Status Date / Time No Known Allergies Allergy Verified 05/31/24 14:50 Review of Systems Const: Denies: fever(s) or chills Card: Denies: chest pain Resp: Denies: dyspnea GI: Denies: abdominal pain : Denies: dysuria, urinary frequency or urinary urgency Musc: Denies: neck pain or back pain Skin/Breast: Denies: rash PFSH ED PFSH: Medical History Dyslipidemia Edema Hypertension Family History Mother CAD (coronary artery disease) Denies family history of Diabetes Cancer Social History Smoking and tobacco/nicotine status: unknown if used tobacco/nicotine Second hand smoke exposure: No Alcohol intake: current Alcohol intake frequency: few times a month Substance/Drug Use: never Physical Exam Const: COMMON NORMALS: no acute distress GENERAL APPEARANCE: cooperative and comfortable ORIENTATION/CONSCIOUSNESS: Yes awake, Yes oriented to person, Yes oriented to place and Yes oriented to time HENMT: COMMON NORMALS: normocephalic, atraumatic and hearing grossly normal bilaterally HEAD & SCALP: normocephalic and atraumatic Resp: COMMON NORMALS: normal respiratory effort, No retractions, No use of accessory muscles and clear to auscultation bilaterally AUSCULTATION: clear to auscultation bilaterally Cardio: COMMON NORMALS: regular rate, regular rhythm and No murmurs present (Cardio) RATE: regular rate RHYTHM: regular rhythm GI: COMMON NORMALS: Soft to palpation and No hepatosplenomegaly present AUSCULTATION: Yes normoactive bowel sounds PALPATION: Yes Soft to palpation, No Tenderness to palpation present (GI), No Guarding due to palpation present (GI) and Yes No hepatosplenomegaly present Extremity: COMMON NORMALS: normal to inspection, capillary refill normal, no clubbing, cyanosis or edema, no calf tenderness and no pedal edema Neuro: SENSORIUM/ORIENTATION: Yes oriented to person, Yes oriented to place and Yes oriented to time OTHER: Abbreviated NIH is 0. 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 Full range of motion all extremities sensation normal vision unchanged no difficulty with speech. Skin: COMMON NORMALS: no rashes or lesions noted GENERAL SKIN EXAM: no rashes or lesions noted Course Vital Signs: Vital signs: Vital Signs Temperature 98.2 F 07/03/24 08:55 Pulse Rate 62 07/03/24 12:02 Respiratory Rate 16 07/03/24 12:02 Blood Pressure 126/74 07/03/24 12:02 Pulse Oximetry 98 07/03/24 12:02 Oxygen Delivery Me thod Room Air 07/03/24 12:02 MDM - General Adult Medical Decision Making No further symptoms patient is resting comfortably EKG reviewed as found in the chart. No acute changes. No focal neurologic deficits noted he has previously had an ulnar nerve transplantation of the right arm we had reported the numbness. Patient states he does have that from time to time this time it lasted a little bit longer to resolve now. I think this is more of a peripheral neuropathy issue there is no other focal neurologic deficits. Discussed the results with him we will discharge him home set him up for a 72-hour Holter monitor and echocardiogram and follow-up with cardiology as an outpatient return if he has further problems. Also aspirin take baby aspirin daily Medical Records I reviewed the patient's medical records. Lab Data I reviewed the patient's lab results. 07/03/24 10:43 07/03/24 10:43 Radiology Impressions Chest X-Ray 07/03/24 10:14 IMPRESSION: No acute findings. Head CT 07/03/24 10:14 IMPRESSION: 1. No evidence of intracranial hemorrhage or mass effect. 2. No acute intracranial findings. Laboratory Results WBC 7.65 10^3/uL (3.29-11.43) 07/03/24 10:43 RBC 4.73 10^6/uL (3.85-5.65) 07/03/24 10:43 Hgb 14.60 g/dL (11.27-16.99) 07/03/24 10:43 Hct 43.4 % (37-53) 07/03/24 10:43 MCV 91.8 fl (82-101) 07/03/24 10:43 MCH 30.9 pg (27-33) 07/03/24 10:43 MCHC 33.6 g/dL (30-55) 07/03/24 10:43 RDW 12.7 % (12.1-15.1) 07/03/24 10:43 Plt Count 226 10^3/cmm (157-399) 07/03/24 10:43 MPV 11.2 fL (7.4-10.4) H 07/03/24 10:43 Neut % (Auto) 70.5 % 07/03/24 10:43 Lymph % (Auto) 21.2 % 07/03/24 10:43 [place] % (Auto) 5.0 % 07/03/24 10:43 Eos % (Auto) 2.2 % 07/03/24 10:43 Baso % (Auto) 0.7 % 07/03/24 10:43 Neut # (Auto) 5.40 10^3/uL (1.8-7.7) 07/03/24 10:43 Lymph # (Auto) 1.6 10^3/uL (0.8-4.8) 07/03/24 10:43 [place] # (Auto) 0.4 10^3/uL (0.2-0.9) 07/03/24 10:43 Eos # (Auto) 0.2 10^3/uL (0.0-0.8) 07/03/24 10:43 Baso # (Auto) 0.1 10^3/uL (0.0-0.1) 07/03/24 10:43 Nucleated RBC % (auto) 0 % 07/03/24 10:43 Nucleated RBCs # 0.0 /100WBC 07/03/24 10:43 Sodium 141 mmol/L (136-145) 07/03/24 10:43 Potassium 4.4 mmol/L (3.5-5.1) 07/03/24 10:43 Chloride 107 mmol/L (98-107) 07/03/24 10:43 Carbon Dioxide 22 mmol/L (22-29) 07/03/24 10:43 Anion Gap 16.4 (5-19) 07/03/24 10:43 BUN 12 mg/dL (6-20) 07/03/24 10:43 Creatinine 0.7 mg/dL (0.7-1.2) 07/03/24 10:43 GFR Calculation 116.2 mL/min (90-130) 07/03/24 10:43 Glucose 99 mg/dL (65-115) 07/03/24 10:43 Calculated Osmolality 292 mOsm/kg (285-295) 07/03/24 10:43 Calcium 9.0 mg/dL (8.5-10.5) 07/03/24 10:43 Total Bilirubin 0.2 mg/dL (0.15-1.2) 07/03/24 10:43 AST 14 U/L (0-40) 07/03/24 10:43 ALT 21 U/L (0-41) 07/03/24 10:43 Alkaline Phosphatase 77 U/L (40-130) 07/03/24 10:43 Troponin T Baseline 7 ng/L (0-15) 07/03/24 10:43 Troponin T 120 Minute 7.09 ng/L (0-15) 07/03/24 12:29 Delta Troponin T 0.09 ABS# (0-10) 07/03/24 12:29 Total Protein 6.5 g/dL (6.6-8.7) L 07/03/24 10:43 Albumin 4.2 g/dL (3.5-5.2) 07/03/24 10:43 Globulin 2.3 g/dL (1.3-4.6) 07/03/24 10:43 All radiology interpretation(s) finalized by discharge Discharge Plan Discharge Patient Disposition: Home Clinical Impression: Near syncope, Neuropathy of right ulnar nerve at wrist Condition: Stable Prescriptions: New aspirin 81 mg tablet,delayed release (DR/EC) 81 mg PO DAILY Qty: 30 0RF No Action furosemide 20 mg tablet 10 mg PO QAM potassium chloride 20 mEq tablet extended release 10 meq PO DAILY Breztri Aerosphere 160-9-4.8 mcg/actuation HFA aerosol inhaler 2 inh inhalation BID tamsulosin 0.4 mg capsule 0.4 mg PO QPM atorvastatin 80 mg tablet 40 mg PO QPM omeprazole 20 mg capsule,delayed release(DR/EC) 20 mg PO QAM cholecalciferol (vitamin D3) 25 mcg (1,000 unit) capsule 75 mcg PO DAILY terbinafine HCl 250 mg tablet 250 mg PO DAILY 45 Days Qty: 45 0RF lisinopril 20 mg Tablet 10 mg PO QAM sildenafil 100 mg Tablet See Rx Instructions .ROUTE .COMPLEX Rx Instructions: Take 100 mg orally as needed ;administer 30 minutes to 4 hours before activity. diclofenac sodium [Voltaren] 1 % Gel See Rx Instructions .ROUTE .COMPLEX Rx Instructions: Apply 4 grams to affected area(s) 4 times daily as needed for pain. Do not exceed more than 16 grams daily to any lower extremity and not more than 8 grams daily to any upper extremity. Max 32gm per day over all joints. omega 4-psw-dhe-fish oil [Fish Oil] 1,000 (120-180) mg Capsule 2 cap PO BID Discharge Orders: Discharge ED (Routine); Ordered 07/03/24 Ordered By: Simone Levin Referrals: Thu Penn MD [Primary Care Provider, Family Practice] Discharge Diet: Usual diet Discharge Activity: Resume usual activity Patient Instructions: Opioid Safety, Pain Management Activity Restrictions/Additional Instructions: Thank you for choosing [facility] for your healthcare needs today. It is very important that you follow up as instructed or that you return to the Emergency Department should you have concerns or if your condition changes or worsens in any way. You were seen with complaints of episode of nearly passing out (near syncope). Cardiac enzymes CT of your head was negative on exam there is no sign that you are having an acute stroke. You did complain of some numbness in your right arm is consistent with her peripheral neuropathy of the ulnar nerve which she previously had surgery on. We do recommend that you start a baby aspirin daily. Will also set you up for an outpatient echocardiogram 72-hour Holter monitor. Will set you up for a follow-up with cardiology. 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
[2024-07-03] MEDS: aspirin 81 mg Chew Tablet 324 MG PO (10:22)
--- NOTE | 2024-07-03 10:48 | PC.PHAR ---
[facility] prior to coming in.
[2024-07-03 10:52] LABS: Basophils # 0.1 10^3/uL (0.0-0.1); Basophils % 0.7 %; Eosinophils # 0.2 10^3/uL (0.0-0.8); Eosinophils % 2.2 %; Hematocrit 43.4 % (37-53); Lymphocytes # 1.6 10^3/uL (0.8-4.8); Lymphocytes % 21.2 %; Mean Corpuscular HGB Conc 33.6 g/dL (30-55); Mean Corpuscular Hemoglobin 30.9 pg (27-33); Mean Corpuscular Volume 91.8 fl (82-101); Mean Platelet Volume 11.2 fL (7.4-10.4); Monocytes # 0.4 10^3/uL (0.2-0.9); Neutrophils % 70.5 %; Nucleated Red Blood Cells % 0 %; Platelet Count 226 10^3/cmm (157-399); Red Blood Count 4.73 10^6/uL (3.85-5.65); Red Cell Distribution Width 12.7 % (12.1-15.1); White Blood Count 7.65 10^3/uL (3.29-11.43)
[2024-07-03 11:12] LABS: Alanine Aminotransferase 21 U/L (0-41); Albumin Level 4.2 g/dL (3.5-5.2); Alkaline Phosphatase 77 U/L (40-130); Anion Gap 16.4 (5-19); Aspartate Amino Transferase 14 U/L (0-40); Blood Urea Nitrogen 12 mg/dL (6-20); Carbon Dioxide 22 mmol/L (22-29); Chloride 107 mmol/L (98-107); Globulin 2.3 g/dL (1.3-4.6); Glomerular Filtration Rate 116.2 mL/min (90-130); Glucose 99 mg/dL (65-115); Osmolality Calculated 292 mOsm/kg (285-295); Potassium 4.4 mmol/L (3.5-5.1); Sodium 141 mmol/L (136-145); Total Bilirubin 0.2 mg/dL (0.15-1.2); Total Protein 6.5 g/dL (6.6-8.7)
[2024-07-03 11:14] LABS: Troponin(5th) Baseline 7 ng/L (0-15)
[2024-07-03 11:33] VITALS: BP 148/78; PULSE 59; RESP 15; O2SAT 94
--- NOTE | 2024-07-03 11:52 | ECG_ITS ---
[employer] [facility] Test Date: 2024-07-03 Pat Name: Neo Edmondson Department: Room: Gender: Male Certified Nurses Aide: : 1965 Requested By: Simone Eugene Order Number: [id number] Gurvinder MD: Sharyn Vale M.D. Measurements Intervals [place] Rate: 60 P: 36 MT: 141 QRS: 106 QRSD: 118 T: 46 QT: 388 QTc: 388 Interpretive Statements SINUS RHYTHM POSSIBLE RIGHT VENTRICULAR HYPERTROPHY [SOME/ALL OF: PROMINENT R IN V1, LATE TRANSITION, RAD, ELVIS, SSS] Compared to ECG 07/03/2024 08:51:17 No significant changes Electronically Signed On 07-04-2024 06:41:17 CDT by Sharyn Vale M.D. [email or web address]
[2024-07-03 12:02] VITALS: BP 126/74; PULSE 62; RESP 16; O2SAT 98
[2024-07-03 12:53] LABS: Troponin 5 2HR 7.09 ng/L (0-15); Troponin 5 2HR Delta 0.09 ABS# (0-10)
[2024-07-03 13:26] VITALS: BP 134/77; PULSE 65; O2SAT 99
== END 2024-07-03 13:27 | disposition home or self-care (01) ==
PROVIDERS: Emergency Provider Family Medicine; PCP Family Medicine
DX: R55 Syncope and collapse (principal); G56.21 Lesion of ulnar nerve, right upper limb; E78.5 Hyperlipidemia, unspecified; I10 Essential (primary) hypertension
CPT/HCPCS: 36415; 70450; 71045; 80053; 84484; 85025; 93005; 99285; J9999

== ENCOUNTER → 2024-07-06 13:46 | Outpatient (BNVA) | payer OTHER, SELFPAY | PROVIDERS: PCP Family Medicine; Referring Provider Family Medicine; Visit Provider Student in an Organized Health Care Education/Training Program | DX: Z12.11 Encounter for screening for malignant neoplasm of colon (principal) | CPT/HCPCS: 99204 ==

== ENCOUNTER → 2024-07-20 13:41 | Outpatient (BNVA) | payer OTHER, SELFPAY | PROVIDERS: PCP Family Medicine; Visit Provider Podiatrist Foot & Ankle Surgery | DX: L60.8 Other nail disorders (principal); B35.1 Tinea unguium | CPT/HCPCS: 99213 ==

== ENCOUNTER 2024-09-05 05:59 | Day surgery (SDC) | payer OTHER, SELFPAY ==
[2024-09-05 06:16] VITALS: BP 157/86; PULSE 59; RESP 18; TEMP 36.1; O2SAT 96; BMI 31.0
--- NOTE | 2024-09-05 07:03 | W.PM.OPSFHP ---
Same Day Surgery H&P Indication for Procedure/HPI DATE OF PROCEDURE: September 05, 2024 CHIEF COMPLAINT/INDICATIONFOR SURGICAL PROCEDURE: screening colonoscopy PREOP DIAGNOSIS: screening colonoscopy PLANNED PROCEDURE: Operation Date: 09/05/24 07:15 Proposed Procedures p Colonoscopy 63654 G0121 Z12.11(Not Applicable) - Zana Hoffman MD Medications/Allergies* Home Medications ?Medication ?Instructions ?Recorded ?Confirmed ?Type atorvastatin 80 mg tablet 40 mg PO QPM 05/06/23 08/30/24 History budesonide 160 mcg-glycopyr 9 2 inh inhalation BID 05/06/23 08/30/24 History mcg-formot 4.8 mcg/actuation HFA inhaler (Breztri Aerosphere) omeprazole 20 mg capsule,delayed 20 mg PO QAM 05/06/23 08/30/24 History release tamsulosin 0.4 mg capsule 0.4 mg PO QPM 05/06/23 08/30/24 History potassium chloride 20 mEq 10 meq PO DAILY PRN Pain, Mild 08/30/23 08/30/24 History tablet,extended release diclofenac sodium 1 % topical gel See Rx Instructions .Route .COMPLEX 07/03/24 08/30/24 History lisinopril 20 mg tablet 10 mg PO QAM 07/03/24 08/30/24 History omega 7-hzc-yqa-fish oil 1,000 mg 2 cap PO BID 07/03/24 08/30/24 History (120 mg-180 mg) capsule (Fish Oil) sildenafil 100 mg tablet See Rx Instructions .Route .COMPLEX 07/03/24 08/30/24 History Allergies/Adverse Reactions Allergy/AdvReac Type Severity Reaction Status Date / Time No Known Allergies Allergy Verified 07/20/24 13:43 Current Medications: Generic Name Dose Route Start Last Admin Trade Name Freq PRN Reason Stop Dose Admin Sodium Chloride 1,000 mls @ 15 mls/hr 09/05/24 06:04 09/05/24 06:25 Sodium Chloride 0.9% IV 09/06/24 06:03 15 mls/hr .Q24H PRN Administration COLONOSCOPY FLUIDS Pertinent History/Comorbid Conditions* Medical History (Updated 07/11/24 @ 00:00 by SHEYLA Ghosh) Dyslipidemia Edema Hypertension Family History (Updated 08/30/23 @ 14:08 by Becki Flynn LPN) CAD (coronary artery disease) Mother Denies family history of Diabetes Cancer Social History Smoking and tobacco/nicotine status: former use of tobacco/nicotine Second hand smoke exposure: No Alcohol intake: current Alcohol intake frequency: few times a month Substance/Drug Use: never Pertinent Exam Findings alert, oriented x 3, clear to auscultation bilaterally, regular rate & rhythm and procedure specific exam findings abdomen soft, nt, nd Recommendations Risks and benefits of procedure reviewed and Patient/family agree to proceed Surgery/Procedure today Coding Level of Care Code Acute Code for Nemo Novak
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
--- NOTE | 2024-09-05 07:36 | PC.NURSE ---
CECUM TIME 0773
[2024-09-05 07:49] VITALS: BP 144/85; PULSE 70; RESP 16; TEMP 36.1; O2SAT 95
[2024-09-05 07:59] VITALS: BP 152/85; PULSE 68; RESP 16; O2SAT 94
--- NOTE | 2024-09-05 16:02 | ANE.PACU2 ---
Inpatient post-anesthesia follow up: Airway intact: Yes Vital signs: Temperature 97.0 F Pulse Rate 68 Respiratory Rate 16 Blood Pressure 152/85 Pulse Oximetry 94 Oxygen Delivery Me thod Room Air Oxygen Flow Rate Fraction of Inspir ed Oxygen Hydration adequate: Yes Nausea and vomiting: Yes Pain level: 1 Mental status: Baseline
== END 2024-09-05 08:49 | disposition home or self-care (01) ==
PROVIDERS: PCP Family Medicine; Visit Provider Student in an Organized Health Care Education/Training Program
PROC: 0DJD8ZZ Inspection of Lower Intestinal Tract, Via Natural or Artificial Opening Endoscopic (ICD-10-PCS; CPT 45378; principal; 2024-09-05 07:15)
DX: Z12.11 Encounter for screening for malignant neoplasm of colon (principal); K62.1 Rectal polyp; D12.2 Benign neoplasm of ascending colon; K64.4 Residual hemorrhoidal skin tags; K63.89 Other specified diseases of intestine; E78.5 Hyperlipidemia, unspecified; J44.9 Chronic obstructive pulmonary disease, unspecified; I10 Essential (primary) hypertension; Z79.899 Other long term (current) drug therapy; Z87.891 Personal history of nicotine dependence
CPT/HCPCS: 45380; 45385; 88305; J2250; J2704; J7030; Q0162

== ENCOUNTER → 2024-09-21 07:53 | Outpatient (BNVA) | payer OTHER, SELFPAY | PROVIDERS: PCP Family Medicine; Visit Provider Student in an Organized Health Care Education/Training Program | DX: Z09 Encounter for follow-up examination after completed treatment for conditions other than malignant neoplasm (principal) | CPT/HCPCS: 99213 ==